=== PATIENT | female | born 1950 | race Asian ===

== ENCOUNTER 2022-01-06 13:48 | Day surgery (SDC) | payer MEDICARE, BC ==
[~2022-01-06] VITALS: Ht 162.6 cm; Wt 66.3 kg
--- NOTE | 2022-01-06 15:00 | NUR ---
received pt via wheelchair, pt is alert and oriented, good csm in right foot, pulses are palpable, foot cleaned with pre-op wipes multiple times. cast boot on right foot, at bedside, patient assisted undressing, consents and paperwork signed. iv started labs drawn, covid test completed. vital signs obtained. pt was up to the bathroom earlier and did not get urine sample. anesthesia aware. surgeon at bedside, right leg marked on front and back due to positioning of pt. 12 lead ekg completed. anesthesia at bedside, detailed explanation of popliteal block explained to patient and . right leg washed with chlorahexidine wipes, unable to get pepcid from pharmacy machine, anesthesia aware and did not want to wait for pharmacy to complete order. labs reviewed,
[2022-01-06 15:34] LABS: BASOPHILS # (AUTO) 0.1 X10'3 (0-0.2); BASOPHILS % (AUTO) 0.9 % (0-1); EOSINOPHILS # (AUTO) 0.1 X10'3 (0-0.9); LYMPHOCYTES # (AUTO) 2.2 X10'3 (1.1-4.8); LYMPHOCYTES % (AUTO) 34.7 % (21-51); MEAN CORPUSCULAR HEMOGLOBIN 28.9 PG (27.0-31.0); MEAN CORPUSCULAR HGB CONC 33.3 g/dL (33.0-36.5); MEAN CORPUSCULAR VOLUME 86.7 FL (78-98); MEAN PLATELET VOLUME 8.7 FL (7.4-10.4); MONOCYTES # (AUTO) 0.5 X10'3 (0-0.9); MONOCYTES % (AUTO) 7.5 % (2-12); NEUTROPHILS # (AUTO) 3.5 X10'3 (1.8-7.7); NEUTROPHILS % (AUTO) 54.9 % (42-75); PRE OP HEMATOCRIT 37.3 % (35.0-45.0); PRE OP HEMOGLOBIN 12.4 g/dL (12.0-16.0); PRE OP PLATELET COUNT 289 X10'3 (140-440); RED BLOOD COUNT 4.31 X10'6 (4.20-5.60)
[2022-01-06 15:45] LABS: ALBUMIN 3.4 G/DL (3.4-5.0); ALBUMIN/GLOBULIN RATIO 0.7 (1.1-1.5); ALKALINE PHOSPHATASE 79 IU/L (46-116); BLOOD UREA NITROGEN 16 MG/DL (7-18); BUN/CREATININE RATIO 30.8 (6.6-38.0); CALCIUM 8.8 MG/DL (8.5-10.1); CHLORIDE 106 MMOL/L (99-107); CREATININE 0.52 MG/DL (0.40-0.90); PRE OP ALT 23 U/L (30-65); PRE OP ANION GAP 11 (8-16); PRE OP AST 24 U/L (10-37); PRE OP BILIRUB, TOTAL 0.3 MG/DL (0.0-1.0); PRE OP GLUCOSE 83 MG/DL (70-104); PRE OP POTASSIUM 3.5 MMOL/L (3.4-5.1); PRE OP SODIUM 143 MMOL/L (135-145); TOTAL CARBON DIOXIDE 25.8 MMOL/L (24-32); eGFR > 90 ML/MIN
[2022-01-06] MEDS ORDERED: bacitracin 15gm ointment TP ONE (15:46)
[2022-01-06] MEDS ORDERED: BUPIVAcaine 0.5% inj/PF 30 ML ONE (15:47)
[2022-01-06] MEDS ORDERED: cloNIDine hcl/PF 100mcg/ml inj ONE (15:54)
[2022-01-06 15:56] VITALS: BP 173/92
[2022-01-06] MEDS ORDERED: midazolam 1 mg/ML 2ml injection ONE (15:57)
[2022-01-06] MEDS ORDERED: FENTANYL CITRATE/PF 50 MCG/1 ML VIAL ONE (15:57)
[2022-01-06] MEDS ORDERED: ROPIVAcaine 0.5% (5mg/ml) 30ml vial ONE (16:00)
[2022-01-06] MEDS ORDERED: rocuronium 10mg/ml inj IV ONE (16:00)
[2022-01-06] MEDS ORDERED: propofol inj 20 ML IV ONE (16:00)
[2022-01-06] MEDS ORDERED: sevoflurane 250ml liquid IH ONE (16:02)
[2022-01-06] MEDS ORDERED: cefazolin/dext.iso 2,000MG/50 ML BAG IV ONE (16:02)
[2022-01-06] MEDS ORDERED: LOSA1TAB36 PO (16:18)
[2022-01-06] MEDS ORDERED: PANT40TA54 PO (16:18)
[2022-01-06 16:19] VITALS: BP 179/93
[2022-01-06] MEDS ORDERED: ceFAZolin 1,000 MG in NS 50ML IVPB IV SCH (16:29)
[2022-01-06] MEDS ORDERED: ringers solution, lacted 1,000 ML IV SCH ×2 (16:30→17:10)
[2022-01-06] MEDS ORDERED: ceFAZolin 1,000 MG in NS 50ML IVPB IV ONE (16:31)
[2022-01-06] MEDS ORDERED: morphine 4 MG/ML inj SYRINge IV PRN (17:10)
[2022-01-06] MEDS ORDERED: proCHLORperazine 10 MG/2 ml inj IV PRN (17:10)
[2022-01-06] MEDS ORDERED: labetalol 20mg/4ml (5mg/ml) syringe IV PRN (17:10)
[2022-01-06] MEDS ORDERED: ondansetron/PF 4mg/2ml inj IV PRN (17:10)
[2022-01-06] MEDS ORDERED: morphine 2 MG/ML inj. syringe IV PRN (17:10)
[2022-01-06] MEDS ORDERED: meperidine/PF 25mg/ml syringe IV PRN ×3 (17:10)
[2022-01-06] MEDS ORDERED: ondansetron/PF 4mg/2ml inj ONE (17:21)
[2022-01-06] MEDS ORDERED: dexamethasone sod phosphate 4mg/ml inj. ONE (17:21)
[2022-01-06] MEDS ORDERED: sugammadex 200mg/2ml injection IV ONE (17:26)
[2022-01-06 17:39] VITALS: BP 167/85
--- NOTE | 2022-01-06 17:39 | NUR ---
Received from OR via [facility], 20G TO LEFT HAND. LACIE/SPLINT TO RIGHT ANKLE CDI, CSMS INTACT , accompanied by Anesthesiologist DR SANTOS AND HALI GARDNER and report given by Anesthesiolgist. Addendum: 01/06/22 at 1822 by Sharlene Roberts RN Amended: Links added.
[2022-01-06 18:20] VITALS: BP 143/75
[2022-01-06 18:30] VITALS: BP 144/87
--- NOTE | 2022-01-06 19:27 | NUR ---
PT DC TO HOME WITH . DSG TO RIGHT ANKLE. VERBAL UNDERSTANDING OF DC INSTRUCTIONS. PT WILL CALL DR GAMBOA TOMORROW FOR F/U APT IN 1-2 WEEKS. PT SENT HOME WITH A CAST ELEVATOR. IV REMOVED CATH INTACT. DC VIA W/C TO HOME WITH . Addendum: 01/06/22 at 1946 by Sharlene Roberts RN Amended: Links added.
== END 2022-01-06 18:39 | disposition home or self-care (01) ==
LOC: OR 13:48
PROVIDERS: ATTEND Podiatrist Foot & Ankle Surgery
DX: S86.011A Strain of right Achilles tendon, initial encounter (principal); G89.18 Other acute postprocedural pain; I10 Essential (primary) hypertension; Z87.891 Personal history of nicotine dependence; Z87.11 Personal history of peptic ulcer disease; Z91.040 Latex allergy status; Z91.013 Allergy to seafood; Z91.030 Bee allergy status; Z91.018 Allergy to other foods; Z79.01 Long term (current) use of anticoagulants; Z79.899 Other long term (current) drug therapy; Z20.822 Contact with and (suspected) exposure to COVID-19; X58.XXXA Exposure to other specified factors, initial encounter; Y93.89 Activity, other specified; Y92.89 Other specified places as the place of occurrence of the external cause; Y99.8 Other external cause status
CPT/HCPCS: 27650; 36415; 64445; 76942; 80053; 82948; 85025; 87635; 93005; A6222; C1713; C9803; J0690; J0735; J1100; J2250; J2405; J2704; J2795; J3010; J3490; J7030; J7120; S0020; Z7506; Z7508; Z7512; A4618; A6253; A6449; A7000